=== PATIENT | female | born 1940 | race Caucasian/White ===

== ENCOUNTER 2018-05-23 12:06 | Inpatient (IN) | payer MEDICARE ==
[~2018-05-23] VITALS: Ht 162.6 cm; Wt 91.2 kg
[2018-05-23 13:20] VITALS: BP 149/73
[2018-05-23] MEDS ORDERED: NS + 20MEQ KCL 1,000 ML IV SCH (14:21)
[2018-05-23] MEDS ORDERED: ONDANSETRON 2MG/ML, 2ML IVPush PRN (14:30)
[2018-05-23] MEDS ORDERED: LABETALOL 5MG/ML, 20ML IVPush PRN (14:30)
[2018-05-23] MEDS ORDERED: hydrALAzine 20 MG/ML, 1ML IV PRN (14:30)
[2018-05-23] MEDS ORDERED: ENALAPRILAT 1.25 MG/ML, 2ML IV PRN (14:30)
[2018-05-23] MEDS ORDERED: LORazepam 2 MG/ML, 1ML IVPush PRN (14:30)
[2018-05-23] MEDS ORDERED: DOCUSATE 100 MG CAPSULE PO PRN (14:30)
[2018-05-23] MEDS ORDERED: ACETAMINOPHEN 325 MG TABLET PO PRN (14:30)
[2018-05-23] MEDS ORDERED: POLYETHYLENE GLYCOL 17 GM PACKET PO PRN (14:30)
[2018-05-23] MEDS ORDERED: LEVO50TA5 PO (14:43)
[2018-05-23] MEDS ORDERED: ASPI-496 PO (14:43)
[2018-05-23] MEDS ORDERED: DIAZ10TA4 PO (14:43)
[2018-05-23] MEDS ORDERED: ONDA8TAB16 SL (14:43)
[2018-05-23] MEDS ORDERED: TOLT4CAP12 PO (14:43)
[2018-05-23] MEDS ORDERED: LEVE500T8 PO (14:43)
[2018-05-23] MEDS ORDERED: ALBU8.5H8 INH (14:43)
[2018-05-23] MEDS ORDERED: LACT1CAP43 PO (14:43)
[2018-05-23] MEDS: ENOXAPARIN 40 MG/0.4 ML SQ SCH (15:48)
[2018-05-23] MEDS ORDERED: TRIA1CAP3 PO (15:53)
[2018-05-23] MEDS ORDERED: BACL-19 PO (15:53)
[2018-05-23] MEDS ORDERED: METH500T7 PO (15:53)
[2018-05-23] MEDS ORDERED: ALBUTEROL SULFATE 90 MCG INH PRN (16:30)
[2018-05-23] MEDS ORDERED: BACLOFEN 10 MG TABLET PO PRN (16:30)
[2018-05-23] MEDS ORDERED: [UNRECOGNIZED DRUG - REMARK] PO PRN (16:30)
[2018-05-23 19:44] VITALS: BP 145/73
[2018-05-23] MEDS ORDERED: DIAZEPAM 5 MG TABLET ONE (20:30)
[2018-05-23] MEDS: DIAZEPAM 10 MG TABLET PO SCH (20:48)
[2018-05-23] MEDS: LEVETIRACETAM 500 MG TABLET PO SCH (20:48)
[2018-05-23] MEDS: FAMOTIDINE 20 MG TABLET PO SCH (20:48)
[2018-05-24 00:47] VITALS: BP 140/70
[2018-05-24 06:06] LABS: ANION GAP 6 mmol/L (5-15); CALCIUM 8.4 mg/dL (8.5-10.1); CHLORIDE 108 mmol/L (98-107); CREATININE 0.76 mg/dL (0.55-1.02)
[2018-05-24 07:17] VITALS: BP 146/74
[2018-05-24] MEDS ORDERED: DIAZEPAM 5 MG TABLET ONE (07:31)
[2018-05-24] MEDS: LEVOTHYROXINE 50 MCG TABLET PO SCH (07:43)
[2018-05-24] MEDS: SENNA/DOCUSATE TABLET PO SCH (07:43)
[2018-05-24] MEDS: LEVETIRACETAM 500 MG TABLET PO SCH ×2 (07:43→21:25)
[2018-05-24] MEDS: FAMOTIDINE 20 MG TABLET PO SCH ×2 (07:43→21:25)
[2018-05-24] MEDS: DIAZEPAM 10 MG TABLET PO SCH ×2 (07:44→21:00)
[2018-05-24] MEDS: TOLTERODINE TARTRATE PO SCH (09:00)
[2018-05-24] MEDS ORDERED: ASPI1TAB31 PO (09:04)
[2018-05-24] MEDS: TRIAMTERENE-HCTZ 37.5/25 MG TABLET PO SCH (09:15)
[2018-05-24] MEDS ORDERED: ASA/APAP/ CAFFEINE TABLET PO PRN (10:00)
[2018-05-24 14:57] VITALS: BP 99/65
[2018-05-24] MEDS: ENOXAPARIN 40 MG/0.4 ML SQ SCH (15:24)
[2018-05-24 19:57] VITALS: BP 122/78
[2018-05-24] MEDS ORDERED: DIAZEPAM 2 MG TABLET ONE (21:15)
[2018-05-25 00:36] VITALS: BP 150/79
[2018-05-25 07:20] VITALS: BP 149/67
[2018-05-25] MEDS ORDERED: DIAZEPAM 2 MG TABLET ONE ×2 (08:48→19:43)
[2018-05-25] MEDS: DIAZEPAM 10 MG TABLET PO SCH ×2 (09:00→20:46)
[2018-05-25] MEDS: TOLTERODINE TARTRATE PO SCH (09:00)
[2018-05-25] MEDS: SENNA/DOCUSATE TABLET PO SCH (09:06)
[2018-05-25] MEDS: TRIAMTERENE-HCTZ 37.5/25 MG TABLET PO SCH (09:06)
[2018-05-25] MEDS: FAMOTIDINE 20 MG TABLET PO SCH ×2 (09:06→20:45)
[2018-05-25] MEDS: LEVETIRACETAM 500 MG TABLET PO SCH ×2 (09:07→20:46)
[2018-05-25] MEDS: LEVOTHYROXINE 50 MCG TABLET PO SCH (09:07)
[2018-05-25 12:49] VITALS: BP 97/61
[2018-05-25] MEDS: ENOXAPARIN 40 MG/0.4 ML SQ SCH (15:13)
[2018-05-25 19:18] VITALS: BP 143/81
[2018-05-26 00:58] VITALS: BP 152/80
[2018-05-26 01:43] VITALS: BP 135/73
[2018-05-26 08:30] VITALS: BP 137/76
[2018-05-26] MEDS: TOLTERODINE TARTRATE PO SCH (09:00)
[2018-05-26] MEDS ORDERED: DIAZEPAM 2 MG TABLET ONE (09:35)
[2018-05-26] MEDS: TRIAMTERENE-HCTZ 37.5/25 MG TABLET PO SCH (09:42)
[2018-05-26] MEDS: LEVETIRACETAM 500 MG TABLET PO SCH ×2 (09:42→20:17)
[2018-05-26] MEDS: FAMOTIDINE 20 MG TABLET PO SCH ×2 (09:42→20:17)
[2018-05-26] MEDS: LEVOTHYROXINE 50 MCG TABLET PO SCH (09:42)
[2018-05-26] MEDS: SENNA/DOCUSATE TABLET PO SCH (09:43)
[2018-05-26] MEDS: DIAZEPAM 10 MG TABLET PO SCH ×2 (09:43→20:18)
[2018-05-26] MEDS: ENOXAPARIN 40 MG/0.4 ML SQ SCH (15:26)
[2018-05-26 20:00] VITALS: BP 137/61
[2018-05-26] MEDS ORDERED: DIAZEPAM 5 MG TABLET ONE (20:12)
[2018-05-27 02:27] VITALS: BP 122/76
[2018-05-27] MEDS ORDERED: DIAZEPAM 2 MG TABLET ONE (08:18)
[2018-05-27 08:30] VITALS: BP 112/73
[2018-05-27] MEDS: DIAZEPAM 10 MG TABLET PO SCH (08:45)
[2018-05-27] MEDS: LEVOTHYROXINE 50 MCG TABLET PO SCH (08:45)
[2018-05-27] MEDS: SENNA/DOCUSATE TABLET PO SCH (08:45)
[2018-05-27] MEDS: LEVETIRACETAM 500 MG TABLET PO SCH (08:46)
[2018-05-27] MEDS: FAMOTIDINE 20 MG TABLET PO SCH (08:46)
[2018-05-27] MEDS: TRIAMTERENE-HCTZ 37.5/25 MG TABLET PO SCH (08:46)
[2018-05-27] MEDS: TOLTERODINE TARTRATE PO SCH (08:50)
[2018-05-27 08:54] VITALS: BP 117/72
[2018-05-27 13:50] VITALS: BP 113/68
[2018-05-27] MEDS ORDERED: FAMO20TA7 PO (15:58)
[2018-05-27] MEDS: ENOXAPARIN 40 MG/0.4 ML SQ SCH (17:06)
== END 2018-05-27 18:00 | DRG 93 ==
LOC: 4EST 13:13
PROVIDERS: ADMIT Internal Medicine; ATTEND Family Medicine
DX: G25.3 Myoclonus (principal); I10 Essential (primary) hypertension; M54.30 Sciatica, unspecified side; G62.9 Polyneuropathy, unspecified; G89.29 Other chronic pain; G43.909 Migraine, unspecified, not intractable, without status migrainosus; Z96.89 Presence of other specified functional implants; R27.0 Ataxia, unspecified; E03.9 Hypothyroidism, unspecified; K21.9 Gastro-esophageal reflux disease without esophagitis; Z79.899 Other long term (current) drug therapy; Z88.5 Allergy status to narcotic agent; Z88.6 Allergy status to analgesic agent; Z88.8 Allergy status to other drugs, medicaments and biological substances; Z87.891 Personal history of nicotine dependence; Z72.89 Other problems related to lifestyle; Z82.49 Family history of ischemic heart disease and other diseases of the circulatory system; Z83.3 Family history of diabetes mellitus
CPT/HCPCS: 0399T; 36415; 70551; 80048; 83735; 84100; 93306; 95816; G0378; J1650; J3480; 92523-GN